=== PATIENT | female | born 1980 ===

== ENCOUNTER 2018-01-05 22:43 | Emergency (ER) | payer BC ==
[~2018-01-05] VITALS: Ht 165.1 cm; Wt 58.2 kg
[2018-01-05 22:48] VITALS: TEMP 98.8
[2018-01-05] MEDS ORDERED: MACROBID 1100 MG/CAP PO (23:05)
[2018-01-05] MEDS ORDERED: PRENA1 CHEW1 CT1 PO (23:06)
[2018-01-05 23:23] LABS: BASO # 0.1 (0.0-0.2); BASO % 0.3 % (0.0-2.0); EOS # 0.3 (0.0-0.7); EOS % 1.8 % (0-4.0); GRAN # 11.9 (1.4-6.5); GRAN % 78.4 % (42.2-75.2); HEMOGLOBIN 11.1 g/dl (12.5-16.0); LYMPH # 1.8 (1.2-3.4); LYMPH % 11.5 % (20.0-51.0); MEAN CELL VOLUME 89 fl (80.0-100.0); MEAN CORPUSCULAR HEMOGLOBIN 31 pg (27.0-31.0); MEAN CORPUSCULAR HGB CONC 35 g/dl (33.0-37.0); MEAN PLATELET VOLUME 9.9 fl (7.4-10.4); MONO # 1.1 (0.1-0.6); MONO % 7.2 % (1.7-9.3); PLATELET COUNT 287 K/mm3 (130-400); REDCELL DISTRIBUTION WIDTH-CV 12.5 % (11.5-14.5)
[2018-01-05 23:24] LABS: HEMATOCRIT 32.2 % (37.0-47.0)
[2018-01-05 23:35] LABS: ALBUMIN 3.7 gm/dL (3.5-5.0); BILIRUBIN,TOTAL 0.3 mg/dL (0.0-1.0); CALCIUM 9.4 mg/dL (8.4-10.2); CREATININE, serum 0.49 mg/dL (0.52-1.25); POTASSIUM 4.1 mmol/L (3.4-5.0); TOTAL PROTEIN 7.2 gm/dL (6.4-8.2)
[2018-01-05] MEDS ORDERED: VITAMINC1000TA PO (23:50)
[2018-01-06 00:14] LABS: COLLECTION METHOD CLEAN CATCH
[2018-01-06 00:19] LABS: PH 7 (5-8); SQUAMOUS EPITHELIAL 0-2 /hpf; URINE APPEARANCE Clear; URINE BACTERIA None Seen /hpf; URINE BILIRUBIN Negative (NEGATIVE); URINE BLOOD 1+ (NEGATIVE); URINE COLOR Yellow; URINE GLUCOSE Negative (NEGATIVE); URINE KETONE Negative (NEGATIVE); URINE LEUKOCYTE ESTERASE Negative (NEGATIVE); URINE NITRATE Negative (NEGATIVE); URINE PROTEIN(semi-quant) Negative (NEGATIVE); URINE RBC 0-2 /hpf; URINE UROBILINOGEN Negative (NEGATIVE)
[2018-01-06 02:46] VITALS: BP 102/54; PULSE 75
== END 2018-01-06 02:43 | disposition home or self-care (01) ==
LOC: COL.ER 22:43
PROVIDERS: Nurse Practitioner
DX: O26.892 Other specified pregnancy related conditions, second trimester (principal); R10.31 Right lower quadrant pain; R10.32 Left lower quadrant pain; Z90.89 Acquired absence of other organs; Z87.891 Personal history of nicotine dependence; Z3A.21 21 weeks gestation of pregnancy
CPT/HCPCS: J0696; J2270; J7030

== ENCOUNTER 2018-05-26 06:52 | Inpatient (IN) | payer BC ==
[~2018-05-26] VITALS: Ht 160 cm; Wt 71.4 kg
[~2018-05-26 06:52] MED LIST: MACROBID 1100 MG/CAP PO; PRENA1 CHEW1 CT1 PO; VITAMINC1000TA PO
[2018-05-26 19:45] LABS: BASO % 0.3 % (0.0-2.0); EOS # 0.1 (0.0-0.7); EOS % 1.3 % (0-4.0); GRAN # 7.3 (1.4-6.5); GRAN % 68.9 % (42.2-75.2); HEMOGLOBIN 12.5 g/dl (12.5-16.0); LYMPH # 2.3 (1.2-3.4); LYMPH % 21.3 % (20.0-51.0); MEAN CELL VOLUME 91 fl (80.0-100.0); MEAN CORPUSCULAR HEMOGLOBIN 31 pg (27.0-31.0); MEAN CORPUSCULAR HGB CONC 34 g/dl (33.0-37.0); MEAN PLATELET VOLUME 11.3 fl (7.4-10.4); MONO # 0.8 (0.1-0.6); PLATELET COUNT 199 K/mm3 (130-400); RED BLOOD COUNT 4.02 M/mm3 (4.10-5.30); REDCELL DISTRIBUTION WIDTH-CV 13.3 % (11.5-14.5)
[2018-05-26 19:46] LABS: HEMATOCRIT 36.7 % (37.0-47.0)
[2018-05-26 19:52] VITALS: BP 114/70; PULSE 76; TEMP 98.3
[2018-05-26] MEDS ORDERED: SYNTHROID 0.0.025 MG PO (19:55)
[2018-05-26] MEDS ORDERED: FOLIC ACID 40400 MCG PO (19:56)
[2018-05-26] MEDS ORDERED: OMEGA-3 1000 MG1 CAP PO (19:57)
[2018-05-26] MEDS ORDERED: MASON NATURAL2000 IU PO (19:57)
[2018-05-26] MEDS ORDERED: PROBIOTIC FORMU1 CAP PO (19:58)
[2018-05-26] MEDS ORDERED: NATURAL IRON65 MG PO (19:58)
[2018-05-26 20:30] VITALS: BP 96/52; PULSE 62
[2018-05-26 21:00] VITALS: BP 91/53; PULSE 68; TEMP 98.3
[2018-05-26 21:30] VITALS: BP 99/55; PULSE 58
[2018-05-26 22:00] VITALS: BP 100/56; PULSE 54
[2018-05-26 23:30] VITALS: BP 102/58; PULSE 64
[2018-05-27] VITALS (82 sets, daily range): BP systolic 84–1119; BP diastolic 42–577; PULSE 52–111; TEMP 97.8–99.7
[2018-05-28] VITALS (9 sets, daily range): BP systolic 85–101; BP diastolic 50–58; PULSE 60–114; TEMP 98–98.7
[2018-05-28 07:53] LABS: HEMATOCRIT 28.2 % (37.0-47.0); HEMOGLOBIN 9.4 g/dl (12.5-16.0)
[2018-05-28] MEDS ORDERED: PERCOCET 325 MG1 TA2 PO (09:30)
[2018-05-28] MEDS ORDERED: MOTRIN 600600 MG/TAB PO (09:30)
[2018-05-29 07:35] VITALS: BP 77/39; PULSE 70; TEMP 97.8
[2018-05-29] MEDS ORDERED: PERCOCET 325 MG1 TA2 PO (10:54)
[2018-05-29] MEDS ORDERED: MOTRIN 600600 MG/TAB PO (10:54)
== END 2018-05-29 11:15 | disposition home or self-care (01) | DRG 807 ==
LOC: LDR 06:52 → OB 05-28 03:19
PROVIDERS: Obstetrics & Gynecology
PROC: 3E0P7VZ Introduction of Hormone into Female Reproductive, Via Natural or Artificial Opening (ICD-10-PCS; 2018-05-26)
PROC: 10D07Z6 Extraction of Products of Conception, Vacuum, Via Natural or Artificial Opening (ICD-10-PCS; principal; 2018-05-27)
PROC: 0KQM0ZZ Repair Perineum Muscle, Open Approach (ICD-10-PCS; 2018-05-27)
DX: O48.0 Post-term pregnancy (principal); Z37.0 Single live birth; Z3A.40 40 weeks gestation of pregnancy; O34.13 Maternal care for benign tumor of corpus uteri, third trimester; O99.284 Endocrine, nutritional and metabolic diseases complicating childbirth; E03.9 Hypothyroidism, unspecified; O76 Abnormality in fetal heart rate and rhythm complicating labor and delivery; O70.1 Second degree perineal laceration during delivery
CPT/HCPCS: J2590; J2795; J7120

== ENCOUNTER → 2018-10-06 | Outpatient (CLI) | payer BC ==
[~2018-10-06] MED LIST changes: +FOLIC ACID 40400 MCG PO; +MASON NATURAL2000 IU PO; +MOTRIN 600600 MG/TAB PO; +NATURAL IRON65 MG PO; +OMEGA-3 1000 MG1 CAP PO; +PERCOCET 325 MG1 TA2 PO; +PROBIOTIC FORMU1 CAP PO; +SYNTHROID 0.0.025 MG PO
--- NOTE | 2018-10-06 11:28 | NUR ---
Pt, Patrizia Vital, presents for outpatient consult with her 4 month old baby boy, Los Vital. They have been referred by Dr. Magallanes b/c of infant weight concerns. She is accompanied by her spouse. Los was born on [birth year] and weighed 7#6oz (3345 gms). He weight was followed closely by Dr. Magallanes's office over the first 5 days of life. The office reports he weighed 9#10 oz at 4 weeks; 12#2 oz at 9+ weeks; and then 14#0 oz at 4 month appt yesterday. Today Los weighs 14# 1.2oz (6385 gms). He breastfeeds the right breast, has a gain of 70gms, after the left side has an additional gain of 15gm for a total post feed gain of 85gms or 3oz. Pt reports she follows his lead for feedings in the daytime, reporting 7-8 feeds in 24 hours. She reports yesterday he ate at 0930, 1200 (refused feeding), 1430, that he ate from 4518-8393 "for two hours", then at 1930 before bedtime. She "dream feeds" him 150ml by bottle at 2300, and "dream feeds" him at the breast at 0300. He is breastfed next when he wakes between 0730 and 0830 in the morning. Pt manually collects 150ml through the course of the day to have the 150ml bottle. Pt advised to offer both breasts at each feeding (she states she is very full at the morning feeding so he only eats one side then). Also to offer the breast more often in the daytime, rather than waiting for him to demand, and to incorporate and additional feeding in the nighttime. The intent is to work in more milk per feeding by offering both breasts each feed, increase the number of feedings per 24 hours by feeding more frequently and adding a noc feeding. Discussed with pt how this will help improve her milk supply as well. Pt verbalizes understanding, has a follow up appt with Dr. Magallanes this afternoon. suggests follow up in a week, either with Dr. Magallanes or this . Pt to contact this if Dr. Magallanes wants us to continue evaluations. Questions invited and answered.
== END ==
LOC: LAC 10:52
DX: Z39.1 Encounter for care and examination of lactating mother (principal); Z71.89 Other specified counseling

== ENCOUNTER → 2019-03-14 | Outpatient (CLI) | payer BC ==
[2019-03-14 18:08] LABS: THYROID STIMULATING HORMONE 0.508 uIU/mL (0.465-4.680)
== END ==
LOC: ZCOL.LAB 17:04
PROVIDERS: Family Medicine
DX: E03.9 Hypothyroidism, unspecified (principal)

== ENCOUNTER → 2020-03-05 | Outpatient (CLI) | payer BC | LOC: MC.RAD 08:09 | DX: Z12.31 Encounter for screening mammogram for malignant neoplasm of breast (principal) ==